=== PATIENT | male | born 1950 | race African-American/Black ===

== ENCOUNTER 2017-02-20 05:45 | Inpatient (IN) ==
[2017-02-19 12:56] LABS: Basophils % 0.5 % (0.0-0.8); Eosinophils # 0.1 10*3/uL (0.0-0.87); Hematocrit 38.3 VOL% (42.0-52.0); Hemoglobin 12.8 GM/DL (14.0-18.0); Immature Granulocytes % 0.3 %; Immature Granulocytes Absolute 0.02 #; Lymphocytes # 1.2 10*3/uL (1.4-4.0); Lymphocytes % 19.2 % (21.2-54.2); Mean Corpuscular HGB Conc 33.4 GM/DL (32-36); Mean Corpuscular Hemoglobin 27 PG (27-34); Mean Corpuscular Volume 81.1 FL (87-102); Mean Platelet Volume 9.9 FL (9.6-12.0); Monocytes # 0.5 10*3/uL (0.11-0.8); Monocytes % 8.6 % (1.7-12.7); Neutrophils # 4.3 10*3/uL (1.4-7.4); Neutrophils % 70.4 % (38.7-73.9); Platelet Count 314 T/CUMM (130-400); Red Blood Count 4.72 MC/CUMM (3.8-5.5); Red Cell Distribution Width 14.6 % (9.3-17.3); White Blood Count 6.1 T/CUMM (4-12)
[2017-02-19 13:34] LABS: Calcium 9.2 MG/DL (8.5-10.1); Osmolality,Calculated 284.3 MOS/KG (273-304); Potassium 4.2 MMOL/L (3.5-5.1)
--- NOTE | 2017-02-19 13:43 | EKG Report ---
Stationary ECG Study [facility] Test Date: 02/19/2017 1:43:01 PM Pat Name: NATANAEL WEBER Department: Room: Gender: M Layer Out Plate Glass: EFFIE DESAI 02-20 : 1950 Requested by: Rolando Capps Order Number: [id number] Reading MD: JESSIKA GARCIA Intervals [place] Rate: 92 P: 72 VA: 177 QRS: 45 QRSD: 80 T: 26 QT: 341 QTc: 391 Interpretive Statements SINUS RHYTHM Electronically Signed On 02-20-17 12:53:18 CDT by JESSIKA GARCIA [email or web address]
--- NOTE | 2017-02-19 13:59 | XRay Report ---
Exam: XR chest 2V Indication: Preop Comparison study: None Findings: The heart, mediastinum, and bony structures are within normal limits. There is no focal consolidation, pneumothorax or pleural effusion identified. Several punctate calcified lesions within the hilar regions bilaterally are most compatible with calcified granulomas. Impression: No acute cardiopulmonary process. PROCEDURE INTERPRETED AT [facility] DEPARTMENT OF RADIOLOGY Final Report Signed by: Avila Teresa
[2017-02-19 14:11] LABS: Apearance,Urine CLEAR (Clear); Bilirubin,Urine Negative (Negative); Blood, Urine Negative (Negative); Glucose,Urine (UA) Negative (Negative); Hyaline Casts,Urine 1 /LPF (0-3); Ketones,Urine Negative (Negative); Mucus,Urine Occasional /LPF (Occasional); Nitrite,Urine Negative (Negative); Protein,Urine Negative; RBC,Urine 2 /HPF (0-4); Urine Color Yellow (Yellow); Urine Specific Gravity 1.017 (1.001-1.035); Urine Urobilinogen < 2.0 EU/DL (0.2-1.0); WBC,Urine 1 /HPF (0-6)
[2017-02-20] MEDS ORDERED: BACITRACIN OINT 0.9 GM PACK TOP ONE (06:59)
--- NOTE | 2017-02-20 07:00 | History and Physical Update ---
History and Physical Update - History and Physical H&P was reviewed, the patient examined and there: are no changes in the patients condition since last H&P was completed.
[2017-02-20] MEDS ORDERED: GENTAMICIN 80 MG/2 ML VIAL ONE (07:05)
[2017-02-20] MEDS ORDERED: ALBUTEROL 2.5 MG/3 ML NEB RESP TX ONE (07:19)
[2017-02-20] MEDS ORDERED: FAMOTIDINE 20 MG TABLET PO ONE (07:19)
[2017-02-20] MEDS ORDERED: DIAZEPAM 5 MG TABLET PO ONE (07:19)
[2017-02-20] MEDS ORDERED: SODIUM CHLORIDE 0.9% 100 ML IV ONE (07:20)
[2017-02-20] MEDS ORDERED: ceFAZolin 1,000 MG VIAL ONE (07:20)
[2017-02-20] MEDS ORDERED: FAMOTIDINE 20 MG TABLET ONE (07:20)
[2017-02-20] MEDS ORDERED: DIAZEPAM 5 MG TABLET ONE (07:20)
[2017-02-20] MEDS ORDERED: LACTATED RINGERS 1,000 ML IV SCH (07:30)
[2017-02-20] MEDS ORDERED: ROPIVACAINE 0.5% 30 ML VIAL ONE (07:32)
--- NOTE | 2017-02-20 09:45 | XRay Report ---
Exam: XR knee 2V RT Date: 02/20/2017 Indication: Right tibial plateau fixation fracture Comparison: 02/10/2017 Technical: AP lateral views in OR 2 images Findings: 31 seconds fluoroscopy time provided to Dr. Dodd for placement of a side plate and screws stabilizing tibial plateau fracture. 6 screws and plates are present from a lateral approach. No new fracture present. The distal femur and patella are intact. There is a fracture of the proximal fibula noted. Impression: 1. Interval plating of tibial plateau fracture with sideplate and screws. PROCEDURE INTERPRETED AT [facility] DEPARTMENT OF RADIOLOGY Final Report Signed by: Dr. Chandu Haywood
[2017-02-20] MEDS ORDERED: ACETAMINOPHEN 325 MG TABLET PO PRN (09:50)
[2017-02-20] MEDS ORDERED: ALPROSTADIL 40 MCG IC PRN (09:50)
[2017-02-20] MEDS ORDERED: MORPHINE 2 MG/1 ML SYRINGE IV PRN (09:50)
[2017-02-20] MEDS ORDERED: MAGNESIUM HYDROXIDE SUSP 30 ML UDCUP PO PRN (09:50)
[2017-02-20] MEDS ORDERED: KETOROLAC 30 MG/1 ML VIAL IV PRN (10:00)
[2017-02-20] MEDS ORDERED: SILDENAFIL CITRATE 100 MG PO SCH (10:00)
--- NOTE | 2017-02-20 10:03 | Operative Note ---
Date of procedure: 02/20/17 Procedure: DIAGNOSIS: Left split depressed tibial plateau fracture PROCEDURE: Open reduction fixation left split depressed tibial plateau fracture SURGEON: Yousif ANESTHESIA: General with postoperative adductor canal block PROCEDURE and FINDINGS: After adequate anesthesia was induced, his right lower extremities prepped and draped in usual sterile fashion. His limb was exsanguinated with Esmarch. Tourniquet was inflated to 300 mmHg. Estimated tourniquet time was 60 minutes and was released during wound closure. An anteriolateral approach was made to the proximal tibia through a curvilinear incision centered over Gerdy's tubercle. Iliotibial band was incised longitudinally and extended distally through the anterior crural fascia. The iliotibial band was elevated anteriorly and posteriorly off of Gerdy's tubercle. A transverse capsulotomy was performed inferior to the lateral meniscus. The central fragment was disimpacted and elevated. The patient had poor bone quality. Allograft cancellous bone chips presoaked in gentamicin was used as a bone filler. The fracture was satisfactorily reduced and secured with a Synthes small fragment lateral proximal tibial locking plate. 3 locking screws and 1 nonlocking screw were used proximally. An oblique locking screw was placed. 2 cortical screws were used distally. 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 The arthrotomy was closed with 3-0 Ethibond [id number] suture. The iliotibial band and crural fascia were closed with 0 Vicryl [id number] suture. Subtenons tissue was closed with 3-0 Vicryl. Skin was closed with michelle. Bacitracin and a sterile dressing was applied. The patient was and transferred recovery room. He is anticipated to receive an adductor canal block. Surgeon / Physician: Rolando Dodd Jr. Results - Labs CBC & BMP: 02/19/17 12:49 02/19/17 12:49 Discharge Plan - Discharge Medications No Action Ascorbic Acid Tab [Vitamin C Tab] 1,000 mg PO DAILY traMADol TAB [Ultram] 50 mg PO Q6H PRN PRN Reason: Pain Cholecalciferol [Vitamin D3] 1,000 unit PO DAILY Atorvastatin Calcium 10 mg PO DAILY Amlodipine Besylate 10 mg PO DAILY Sildenafil Citrate [Viagra] 100 mg PO DIRECTED Alprostadil [Edex] 40 mcg IC AC PRN PRN Reason: Erectile Dysfunction Aspirin [Ecotrin] 81 mg PO DAILY - Follow Up or Referral - Forms/Instructions
--- NOTE | 2017-02-20 10:06 | Anesthesia Post-Op ---
Anesthesia Post OP - Post Ansesthetic Evaluation Patient seen in post op: Yes Resp: within normal limits CV: within normal limits Mental: within normal limits Temp: within normal limits [id number]: within normal limits Nausea and Vomiting: within normal limits Pain: within normal limits
--- NOTE | 2017-02-20 10:07 | Discharge Summary ---
Hospital Course - Hospital Course Hospital Course: Mr Peng was admitted after undergoing open reduction fixation of a right lateral tibial plateau fracture. He received perioperative DVT and antimicrobial prophylaxis. Received physical therapy. He was discharged home in stable condition. Specialty Discharge - Follow Up or Referrals Follow up with: Rolando Dodd Jr., MD [Physician] - (CALL OFFICE ON THURSDAY TO SCHEDULE A FOLLOW UP APPOINTMENT FOR 7-10 DAYS) Discharge Plan - Discharge Data Disposition: Disch To Home/Self Care Condition at Discharge: Stable Discharge Diet: advance to your usual diet Activity: ambulate only with your walker Hygiene: may shower Weight Bearing at Discharge: partial weight bearing (30 pounds) Driving: not until seen by doctor - Discharge Medications Continue Ascorbic Acid Tab [Vitamin C Tab] 1,000 mg PO DAILY Cholecalciferol [Vitamin D3] 1,000 unit PO DAILY Atorvastatin Calcium 10 mg PO DAILY Amlodipine Besylate 10 mg PO DAILY Sildenafil Citrate [Viagra] 100 mg PO ONCE PRN PRN Reason: Erectile Dysfunction Alprostadil [Edex] 40 mcg MISC INJ ONCE PRN PRN Reason: Erectile Dysfunction Aspirin [Ecotrin] 81 mg PO DAILY Discontinued traMADol TAB [Ultram] 50 mg PO Q6H PRN PRN Reason: Pain - Follow Up or Referral Follow Up: Rolando Dodd Jr., MD [Physician] - (CALL OFFICE ON THURSDAY TO SCHEDULE A FOLLOW UP APPOINTMENT FOR 7-10 DAYS) - Forms/Instructions Instructions: Open Reduction and Internal Fixation of a Leg Fracture (DC) Additional Discharge Instructions: Follow-up appointment in 7-10 days. Quad sets, ankle pumps, straight leg raises and heel slides twice daily. Daily dry dressing changes. Take Caltrate 1200 mg p.o. daily. 30 pounds partial weightbearing. Prescription for [place] 7.5 with 30 tablets was written. Exam - Constitutional Vitals: Period Temp Pulse Resp BP Sys/Schwartz Pulse Ox Last 24 Hr 98.4 F 86-88 17-18 135/83 98-100 Discharge Results Procedures and tests throughout hospitalization: Pending Orders 02/21/17 04:00 Comp Blood Count Auto Diff IN AM 02/22/17 04:00 Comp Blood Count Auto Diff IN AM Labs on day of discharge: Labs from last 24 hours 02/19/17 02/19/17 02/19/17 12:49 12:49 12:49 WBC 6.1 RBC 4.72 Hgb 12.8 L Hct 38.3 L MCV 81.1 L MCH 27 MCHC 33.4 RDW 14.6 Plt Count 314 MPV 9.9 Neut % (Auto) 70.4 Lymph % (Auto) 19.2 L [place] % (Auto) 8.6 Eos % (Auto) 1.0 Baso % (Auto) 0.5 Neut # (Auto) 4.3 Lymph # (Auto) 1.2 L [place] # (Auto) 0.5 Eos # (Auto) 0.1 Baso # (Auto) 0.0 Immature Gran % 0.3 Nucleated RBC % 0.0 Immature Gran # 0.02 Nucleated RBCs # 0.00 Sodium 141 Potassium 4.2 Chloride 105 Carbon Dioxide 26 Anion Gap 14.2 BUN 20 H Creatinine 1.40 H GFR Calculation 65 BUN/Creatinine Ratio 14.00 Glucose 112 H Calculated Osmolality 284.3 Calcium 9.2 Urine Color Yellow Urine Appearance Clear Urine pH 5.0 Ur Specific [place] 1.017 Urine Protein Negative Urine Glucose (UA) Negative Urine Ketones Negative Urine Blood Negative Urine Nitrate Negative Urine Bilirubin Negative Urine Urobilinogen < 2.0 H Urine Leukocytes Negative Urine RBC 2 Urine WBC 1 Hyaline Casts 1 Urine Mucus Occasional Ur Culture Indicated? Not indicated DS: Provider Primary care physician: Ted Brock Consults: 02/20/17 09:52 Consult to Physical Therapy [CONS] Routine Reason for Physical Therapy: Evaluate and Treat Start Therapy: Today Consult Comment: 30 pwb rle, instruct heel slides, slr, quad sets, ankle pumps Discharging clinician: Rolando Dodd Jr., Expected date of discharge: 02/21/17
[2017-02-20] MEDS ORDERED: SEVOFLURANE 1 UNIT/15 MINUTE INH ONE (10:09)
[2017-02-20] MEDS ORDERED: ACETAMINOPHEN 1,000 MG/100 ML VIAL IV ONE (10:10)
[2017-02-20] MEDS ORDERED: MIDAZOLAM 2 MG/2 ML VIAL ONE (10:10)
[2017-02-20] MEDS: MORPHINE 2 MG/1 ML SYRINGE IV PRN (13:01)
[2017-02-20] MEDS: LACTATED RINGERS 1,000 ML IV SCH ×2 (13:04→20:41)
[2017-02-21 02:42] LABS: Basophils % 0.2 % (0.0-0.8); Eosinophils % 0.1 % (0.00-10.9); Hematocrit 33.7 VOL% (42.0-52.0); Hemoglobin 11.2 GM/DL (14.0-18.0); Immature Granulocytes % 0.4 %; Immature Granulocytes Absolute 0.03 #; Lymphocytes # 1.1 10*3/uL (1.4-4.0); Lymphocytes % 14.1 % (21.2-54.2); Mean Corpuscular HGB Conc 33.2 GM/DL (32-36); Mean Corpuscular Hemoglobin 27 PG (27-34); Mean Corpuscular Volume 80.6 FL (87-102); Monocytes % 12.6 % (1.7-12.7); Neutrophils # 5.9 10*3/uL (1.4-7.4); Neutrophils % 72.6 % (38.7-73.9); Platelet Count 302 T/CUMM (130-400); Red Blood Count 4.18 MC/CUMM (3.8-5.5); Red Cell Distribution Width 14.5 % (9.3-17.3); White Blood Count 8.1 T/CUMM (4-12)
[2017-02-21] MEDS: MORPHINE 2 MG/1 ML SYRINGE IV PRN (02:53)
[2017-02-21] MEDS ORDERED: FONDAPARINUX 2.5 MG/0.5 ML SYRINGE SUBCUT SCH (03:53)
[2017-02-21] MEDS: LACTATED RINGERS 1,000 ML IV SCH (05:50)
--- NOTE | 2017-02-21 07:31 | Orthopedic Progress Note ---
Orthopedics - Subjective Interval history: Comfortable. No complaints. It does well with PT possible home this afternoon Exam - Constitutional Vitals: Period Temp Pulse Resp BP Sys/Schwartz Pulse Ox Last 24 Hr 97.3 F-99.2 F 84-110 16-20 113-172/68-101 94-100 Results - Labs CBC & BMP: 02/21/17 02:19 02/19/17 12:49 Specialty Discharge - Follow Up or Referrals Follow up with: Rolando Dodd Jr., MD [Physician] -
[2017-02-21] MEDS ORDERED: CHOLECALCIFEROL 1,000 UNIT TABLET PO SCH (09:00)
[2017-02-21] MEDS ORDERED: ATORVASTATIN 10 MG TABLET PO SCH (09:00)
[2017-02-21] MEDS ORDERED: amLODIPine 10 MG TABLET PO SCH (09:00)
[2017-02-21] MEDS ORDERED: ASCORBIC ACID 500 MG TABLET PO SCH (09:00)
[2017-02-21] MEDS ORDERED: CALCIUM (CARBONATE) 600 MG TABLET PO SCH (09:00)
[2017-02-21 11:45] VITALS: BP 135/92
== END 2017-02-21 12:07 | disposition home or self-care (01) | DRG 494 ==
LOC: N.OR 05:45 → N.SDSINP 05:47 → N.3E 11:12 → EDSDCBED 11:12 → N.OR 02-21 12:07 → UNDODEPSDC 03-09 08:46
PROVIDERS: ADMIT Orthopaedic Surgery; ATTEND Orthopaedic Surgery